=== PATIENT | male | born 1970 | race Caucasian/White ===

== ENCOUNTER → 2019-01-18 07:55 | Outpatient (CLI) | payer OTHER, SELFPAY ==
[2019-01-18 08:56] LABS: Add Manual Diff / Slide Review NO; Basophils Absolute Auto 100 /uL (0-100); Basophils Percent Auto 1.5 % (0-2); Eosinophils Absolute Auto 100 /uL (0-450); Eosinophils Percent Auto 2.1 % (2-4); Hematocrit 42.5 % (41-53); Hemoglobin 14.5 g/dL (13.5-17.5); Lymphocytes Absolute Auto 1600 /uL (1100-4500); Lymphocytes Percent Auto 32.4 % (25-40); Mean Corpuscular HGB Conc 34.1 % (30-36); Mean Corpuscular Hemoglobin 31.6 PG (26-34); Mean Corpuscular Volume 92.7 fL (80-100); Monocytes Absolute Auto 700 /uL (0-900); Monocytes Percent Auto 13.3 % (3-14); Neutrophils Absolute Auto 2600 /uL (1500-7000); Neutrophils Percent Auto 50.7 % (50-75); Platelet Count 166 X10^3/uL (150-400); Red Blood Cell Count 4.59 X10^6/uL (4.5-5.9); Red Cell Distribution Width 13.1 % (11.6-14.8); White Blood Cell Count 5.1 X10^3/uL (4.5-11.0)
[2019-01-18 09:49] LABS: Alanine Aminotransferase 27 IU/L (<50); Albumin 4.9 g/dL (3.5-5.0); Alkaline Phosphatase 43 U/L (38-126); Aspartate Aminotransferase 26 IU/L (17-59); Bilirubin Total 1.3 mg/dL (0.2-1.3); Blood Urea Nitrogen 18 mg/dL (9-20); Carbon Dioxide 27 mmol/L (22-32); Chloride 102 mmol/L (98-107); Cholesterol 216 mg/dL (140-199); Estimated Glomerular Filt Rate > 60.0 mL/min (>60); Globulin 2.4 g/dL (1.7-4.1); Glucose 95 mg/dL (70-100); HDL Cholesterol 57 mg/dL (40-60); HEMOLYSIS < 15 (0-50); LDL Cholesterol Calculated 139 mg/dL (<100); Potassium 4.4 mmol/L (3.4-5.1); Sodium 140 mmol/L (137-145); Total Protein 7.3 g/dL (6.3-8.2); Triglycerides 102 mg/dL (35-150)
[2019-01-18 10:17] LABS: TSH w/ Reflex to FT4 1.31 uIU/mL (0.47-4.68)
== END ==
PROVIDERS: PCP Family Medicine; Visit Provider Family Medicine
DX: Z00.00 Encounter for general adult medical examination without abnormal findings (principal)
CPT/HCPCS: 36415; 80053; 80061; 84443; 85025

== ENCOUNTER → 2020-02-17 07:55 | Outpatient (CLI) | payer OTHER, SELFPAY ==
[2020-02-17 08:40] LABS: Add Manual Diff / Slide Review NO; Basophils Absolute Auto 100 /uL (0-100); Basophils Percent Auto 1.4 % (0-2); Eosinophils Absolute Auto 100 /uL (0-450); Hematocrit 42.6 % (41-53); Hemoglobin 14.4 g/dL (13.5-17.5); Lymphocytes Absolute Auto 1700 /uL (1100-4500); Lymphocytes Percent Auto 32.5 % (25-40); Mean Corpuscular HGB Conc 33.7 % (30-36); Mean Corpuscular Hemoglobin 31.1 PG (26-34); Mean Corpuscular Volume 92.3 fL (80-100); Monocytes Absolute Auto 700 /uL (0-900); Monocytes Percent Auto 13.6 % (3-14); Neutrophils Absolute Auto 2700 /uL (1500-7000); Neutrophils Percent Auto 50.5 % (50-75); Platelet Count 178 X10^3/uL (150-400); Red Blood Cell Count 4.62 X10^6/uL (4.5-5.9); Red Cell Distribution Width 13.2 % (11.6-14.8); White Blood Cell Count 5.3 X10^3/uL (4.5-11.0)
[2020-02-17 09:12] LABS: Cholesterol 202 mg/dL (140-199); HDL Cholesterol 59 mg/dL (40-60); LDL Cholesterol Calculated 126 mg/dL (<100); Triglycerides 86 mg/dL (35-150)
[2020-02-17 09:44] LABS: Prostate Specific Antigen Scrn 5.24 ng/mL (0.1-4.0); TSH w/ Reflex to FT4 1.27 uIU/mL (0.47-4.68)
== END ==
PROVIDERS: PCP Family Medicine; Referring Provider Family Medicine; Visit Provider Family Medicine
DX: R35.1 Nocturia (principal); Z13.220 Encounter for screening for lipoid disorders
CPT/HCPCS: 36415; 80061; 84443; 85025; G0103

== ENCOUNTER → 2020-03-09 10:20 | Outpatient (CLI) | payer OTHER, SELFPAY ==
[2020-03-09 11:53] LABS: COVID19 -Nasal RAPID Negative (Negative)
== END ==
PROVIDERS: PCP Family Medicine; Visit Provider Specialist
DX: Z20.822 Contact with and (suspected) exposure to COVID-19 (principal)
CPT/HCPCS: 87635; C9803

== ENCOUNTER 2020-03-10 07:33 | Day surgery (SDC) | payer OTHER, SELFPAY ==
[2020-03-10] VITALS (7 sets, daily range): BP systolic 103–137; BP diastolic 64–86; PULSE 52–64; RESP 12–16; TEMP 36.2–37; O2SAT 92–98; BMI 28.7
--- NOTE | 2020-03-10 | PATH_ITS ---
[facility] Accession Number: [id number] . 01 Material submitted: . PART A: esophagus, E-G Junction - GE JUNCTION PART B: gastrointestinal site - GASTRIC ULCER PART C: colon - COLON POLYP AT 30CM PART D: anus - ANAL LESION . 02 Diagnosis: A. Gastroesophageal Junction, Biopsies: Squamocolumnar junctional mucosa with mild chronic inflammation. Negative for specialized intestinal metaplasia on alcian blue stain. Negative for dysplasia or malignancy. . B. Gastric Ulcer, Biopsy: Gastric body mucosa with focal erosion. Negative for Helicobacter organisms by immunohistochemistry. Negative for intestinal metaplasia. Negative for dysplasia or malignancy. . C. Colon Polyp at 30 cm, Biopsy: Tubular adenoma. . D. Anal Lesion, Biopsy: Most consistent with hypertrophic anal papilla. No evidence of neoplasm. [facility] 03/13/2020 1552 Local . 02 Electronically signed: . Ramana Serra MD, PhD, Pathologist NPI- [id number] . 01 Gross description: . A. The specimen is received in formalin, labeled GE junction and consists multiple frausto-pink fragments of soft tissue measuring 1.0 x 0.7 x 0.2 cm in aggregate. The specimen is entirely submitted in cassette A1. B. The specimen is received in formalin, labeled gastric ulcer and consists of three frausto-pink fragments of soft tissue measuring 0.6 x 0.5 x 0.2 cm in aggregate. The specimen is entirely submitted in cassette B1. C. The specimen is received in formalin, labeled colon polyp at 30 cm and consists of two frausto-pink polyps measuring 0.6 x 0.5 x 0.4 cm each. The margins are inked blue and the specimen is entirely submitted in cassette C1. D. The specimen is received in formalin, labeled anal lesion and consists of a 1.8 x 0.6 x 0.6 cm frausto-pink fragment of soft tissue which is bisected and entirely submitted in cassette D1. (EA:[id number]) /MRV 03/11/2020 1234 Local . 02 Microscopic: . A. An AB/PAS stain is performed to evaluate for specialized intestinal metaplasia, and is negative for goblet cells. The control stains show appropriate reactivity. . B. An immunohistochemical stain was performed to evaluate for Helicobacter organisms and is negative. The control stain showed appropriate reactivity. . * This test was developed and its performance characteristics determined by [facility]. It has not been cleared or approved by the U.[place]. Food and Drug Administration. The FDA has determined that such clearance or approval is not necessary. This test is used for clinical purposes. It should not be regarded as investigational or for research. . 02 Pathologist provided ICD-10: K29.70, D12.5, K62.0 . 02 CPT . 890285, 876633, 679830, 075106, [id number], 658324 Performed at: 01 [facility] [address] [address] [id number] MD Micheal Lunsford MD Phone: [phone] Performed at: 02 [facility] [address] [place] [id number] MD Kamille Nielsen MD Phone: [phone]
--- NOTE | 2020-03-10 08:08 | PM.PREOP ---
Pre-operative Note COVID-19 COVID-19 status: Negative Result date/Date tested (Pos, Neg/Pending): 03/09/20 Interval Note History & Physical reviewed/Exam performed by Physician: Yes Changes to H&P: No ASA Class (for procedural sedation): I
[2020-03-10] MEDS: LACTATED RINGERS 1,000 ML 200 ML IV (08:13)
[2020-03-10] MEDS: LIDOCAINE 4% SOLN 50 ML 20 ML TOP (08:18)
[2020-03-10] MEDS: MIDAZOLAM 5 MG/5 ML VIAL IV (08:27)
[2020-03-10] MEDS: fentaNYL 250 MCG/5 ML INJ IV (08:27)
--- NOTE | 2020-03-10 09:23 | PM.OP.ENDO ---
Operative Date/Time/Diagnoses Date of procedure: 03/10/20 Time of procedure: 09:24 Pre-op diagnosis: Screening for colon cancer. Chronic reflux disease. History of prolapsing hemorrhoid per patient. Post-op diagnosis: other (Gastric ulcers in the proximal stomach. Possible Adhikari's esophagus. Polyp at 30 cm from the anal verge. Verrucous pedunculated Lesion at the anal verge) Procedure & Clinicians Study performed: EGD with cold biopsy. Colonoscopy with hot snare polypectomy. Anoscopy with hot snare and excision of anal lesion. Same procedure as scheduled: Yes Indications: Evaluate upper tract. Screening colonoscopy. Possible hemorrhoidal disease. Surgeon: Dc Medrano Procedure Notes SCOAP/Timeout: Performed Procedure in detail: The patient had topical anesthetic applied to oropharynx. She was placed in left lateral decubitus position and underwent IV sedation directed by the surgeon consisting of fentanyl and Versed. A bite block was inserted and the scope was advanced through it into the esophagus. The esophagus was unremarkable. GE junction was noted at 42 cm from the incisors. There was some evidence of possible Adhikari's esophagus at the GE junction.. The stomach insufflated well. There were no lesions seen in the body, antrum or at the incisura. The pyloric channel was patent. The duodenum was unremarkable to the 4th part. The scope was brought back into the stomach and retroflexed. The proximal stomach was remarkable for 3 ulcers near 1 another in the proximal stomach. Biopsies were taken.. The scope was straightened and brought out through the esophagus again. Biopsies were taken at the GE junction. No other lesions were seen. The scope was removed and the patient tolerated the procedure well. The patient was repositioned and he was given additional sedation. Digital exam was remarkable for a palpable irregularity. Prostate is mildly enlarged. There are no palpable masses.. The scope was inserted and advanced through the rectum into the sigmoid, descending, transverse, and ascending colon. I did examine the anus very carefully coming through it and it appeared that there was a lesion in this area. As I advanced through the sigmoid there was a polyp on a stalk which I decided to remove later. No other lesions were seen. There was no diverticulosis noted.. The cecum was reached identified by the ileocecal valve and the appendiceal opening. The ileocecal valve was successfully cannulated. The terminal ileum was normal in appearance. The scope was gradually brought out. One polyp, the lesion at the sigmoid was identified and removed with a hot snare. It appeared to be completely destroyed. The base was cauterized to ensure destruction. The scope was brought out into the rectum.. The scope ultimately was retroflexed in the rectum. The appearance was remarkable for the lesion eyes felt and saw going in. It was right near the anal verge. I did not feel I could snared and a retroflexed view as I could not see the base. Scope was slowly brought through and I placed the snare on the lesion. Unfortunately I could not get it to the base of the colonoscope and snare were removed and an anoscope inserted. I could see the lesion well and grasp it with a clamp inserted through the snare opening. The snare was then placed above my clamp on the base of this lesion and using a hot snare the base was cauterized and then transected with the scissor. The lesion appeared to be completely removed and there was no bleeding. No other lesion was seen in the area.. The scope was removed and the patient tolerated the procedure well. The prep was good. Scope withdrawal time: 9 minutes(14 total) Sedation minutes: 53 Findings: Adhikari's esophagus (Possible. Biopsies pending.), gastric ulcer, polyp (30 cm) and other findings (Lesion near the anal verge. Mildly enlarged prostate.) Specimen(s): other (Polyp and lesion near the anal verge) Complications: none Post-procedure Recommendations: Colonscopy in 5 years, Start medication(s) (Omeprazole 20 mg twice a day) and Other recommendation (Depend upon pathology report) Follow up: months (1) Disposition: PACU
== END 2020-03-10 10:32 | disposition home or self-care (01) ==
PROVIDERS: PCP Family Medicine; Referring Provider Specialist; Visit Provider Specialist
PROC: 0DJ08ZZ Inspection of Upper Intestinal Tract, Via Natural or Artificial Opening Endoscopic (ICD-10-PCS; CPT 43235; principal; 2020-03-10 08:30)
PROC: 0DJD8ZZ Inspection of Lower Intestinal Tract, Via Natural or Artificial Opening Endoscopic (ICD-10-PCS; CPT 45378; 2020-03-10 08:30)
DX: Z12.11 Encounter for screening for malignant neoplasm of colon (principal); K21.9 Gastro-esophageal reflux disease without esophagitis; K25.9 Gastric ulcer, unspecified as acute or chronic, without hemorrhage or perforation; K29.50 Unspecified chronic gastritis without bleeding; D12.6 Benign neoplasm of colon, unspecified; K62.0 Anal polyp
CPT/HCPCS: 45385; 43239; 99152; 99153; J2250; J3010

== ENCOUNTER → 2020-07-22 10:48 | Outpatient (CLI) | payer OTHER, SELFPAY ==
[2020-07-22 12:48] LABS: Prostate Specific Antigen 6.07 ng/mL (0.10-4.00)
== END ==
PROVIDERS: PCP Family Medicine; Referring Provider Family Medicine; Visit Provider Family Medicine
DX: R89.9 Unspecified abnormal finding in specimens from other organs, systems and tissues (principal); R97.20 Elevated prostate specific antigen [PSA]
CPT/HCPCS: 36415; 84153

== ENCOUNTER → 2020-10-16 09:17 | Outpatient (CLI) | payer OTHER, SELFPAY ==
[2020-10-17 08:43] LABS: PSA Free % 11.5 % (.); PSA, Total 8.6 ng/mL (0.0-4.0)
[2020-10-26 09:52] LABS: SARS-CoV-2 Antibody Titer <0.4
== END ==
PROVIDERS: PCP Family Medicine; Referring Provider Family Medicine; Visit Provider Family Medicine
DX: R39.89 Other symptoms and signs involving the genitourinary system (principal); R97.20 Elevated prostate specific antigen [PSA]; Z01.84 Encounter for antibody response examination
CPT/HCPCS: 36415; 84153; 84154; 86769

== ENCOUNTER → 2020-12-16 08:07 | Outpatient (CLI) | payer OTHER, SELFPAY ==
[2020-12-17 09:36] LABS: PSA Free % 11.8 % (.); PSA, Total 7.3 ng/mL (0.0-4.0)
== END ==
PROVIDERS: PCP Family Medicine; Referring Provider Urology; Visit Provider Urology
DX: R39.89 Other symptoms and signs involving the genitourinary system (principal); R97.20 Elevated prostate specific antigen [PSA]
CPT/HCPCS: 36415; 84153; 84154

== ENCOUNTER → 2021-03-19 09:48 | Outpatient (CLI) | payer OTHER, SELFPAY ==
--- NOTE | 2021-03-19 09:49 | DI.RAD.S_ITS ---
PROCEDURE: XR CHEST 2V INDICATIONS: cough TECHNIQUE: 2 views of the chest were acquired. COMPARISON: [facility], CHEST 2 VIEW, 10/10/2009, 9:49. [facility], CHEST 2 VIEW, 02/16/2012, 13:36. FINDINGS: Surgical changes and devices: None. Lungs and pleura: Lungs are clear. No pleural effusions or pneumothorax. Mediastinum: Mediastinal contours are normal. Heart size is normal. Bones and chest wall: No suspicious bony abnormalities. Soft tissues appear unremarkable. IMPRESSION: No source for cough identified radiographically. Dictated by: Delon Alexandra [facility] Interpreted: Ishmael Gillespie MD on 03/19/2021 at 10:04 Transcribed by: AUTUMN on 03/19/2021 at 10:06 Approved by: Ishmael Gillespie M.D. on 03/19/2021 at 10:35
[2021-03-19 10:53] LABS: Alanine Aminotransferase 31 IU/L (<50); Albumin Globulin Ratio 1.7 (1.0-2.8); Alkaline Phosphatase 51 U/L (38-126); Aspartate Aminotransferase 36 IU/L (17-59); BUN Creatinine Ratio 14.7 (6-22); Bilirubin Total 1.3 mg/dL (0.2-1.3); Blood Urea Nitrogen 14 mg/dL (9-20); Calcium 9.8 mg/dL (8.4-10.2); Carbon Dioxide 29 mmol/L (22-32); Chloride 102 mmol/L (98-107); Cholesterol 240 mg/dL (140-199); Estimated Glomerular Filt Rate > 60.0 mL/min (>60); Glucose 97 mg/dL (70-100); HDL Cholesterol 77 mg/dL (40-60); HEMOLYSIS < 15 (0-50); LDL Cholesterol Calculated 150 mg/dL (<100); Potassium 4.4 mmol/L (3.4-5.1); Sodium 140 mmol/L (137-145); Triglycerides 63 mg/dL (35-150)
[2021-03-19 11:22] LABS: TSH w/ Reflex to FT4 1.25 uIU/mL (0.47-4.68)
[2021-03-20 08:52] LABS: PSA Free % 13.7 % (.); PSA, Total 8.4 ng/mL (0.0-4.0)
== END ==
PROVIDERS: PCP Family Medicine; Referring Provider Family Medicine; Visit Provider Family Medicine
DX: R05.3 Chronic cough (principal); E78.2 Mixed hyperlipidemia; K21.9 Gastro-esophageal reflux disease without esophagitis; N41.1 Chronic prostatitis; R97.20 Elevated prostate specific antigen [PSA]
CPT/HCPCS: 36415; 71046; 80053; 80061; 84153; 84154; 84443

== ENCOUNTER → 2021-06-11 09:09 | Outpatient (CLI) | payer OTHER, SELFPAY ==
[2021-06-11 10:59] LABS: Cholesterol 204 mg/dL (140-199); HDL Cholesterol 66 mg/dL (40-60); LDL Cholesterol Calculated 128 mg/dL (<100); Triglycerides 51 mg/dL (35-150)
[2021-06-12 06:11] LABS: PSA, Total 6.1 ng/mL (0.0-4.0)
== END ==
PROVIDERS: PCP Family Medicine; Referring Provider Urology; Visit Provider Urology
DX: E78.2 Mixed hyperlipidemia (principal); R97.20 Elevated prostate specific antigen [PSA]
CPT/HCPCS: 36415; 80061; 84153; 84154

== ENCOUNTER → 2021-09-06 13:41 | Outpatient (CLI) | payer OTHER, SELFPAY ==
[2021-09-07 06:25] LABS: PSA, Total 4.8 ng/mL (0.0-4.0)
== END ==
PROVIDERS: PCP Family Medicine; Referring Provider Urology; Visit Provider Urology
DX: R97.20 Elevated prostate specific antigen [PSA] (principal)
CPT/HCPCS: 36415; 84153; 84154

== ENCOUNTER → 2021-12-17 14:03 | Outpatient (CLI) | payer OTHER, SELFPAY ==
[2021-12-19 07:37] LABS: PSA Free % 12.9 % (.); PSA, Total 10.1 ng/mL (0.0-4.0)
== END ==
PROVIDERS: PCP Family Medicine; Referring Provider Urology; Visit Provider Urology
DX: R97.20 Elevated prostate specific antigen [PSA] (principal)
CPT/HCPCS: 36415; 84153; 84154

== ENCOUNTER → 2022-01-20 11:24 | Outpatient (CLI) | payer OTHER, SELFPAY ==
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
== END ==
PROVIDERS: PCP Family Medicine; Referring Provider Nurse Practitioner Family; Visit Provider Nurse Practitioner Family
DX: M51.34 Other intervertebral disc degeneration, thoracic region (principal); M51.36 Other intervertebral disc degeneration, lumbar region; M54.9 Dorsalgia, unspecified
CPT/HCPCS: 72072; 72100

== ENCOUNTER → 2022-02-21 09:09 | Outpatient (CLI) | payer OTHER, SELFPAY ==
[2022-02-24 14:37] LABS: PSA Free % 11.6 % (.); PSA, Total 8.8 ng/mL (0.0-4.0)
== END ==
PROVIDERS: PCP Family Medicine; Referring Provider Urology; Visit Provider Urology
DX: R39.89 Other symptoms and signs involving the genitourinary system (principal); R97.20 Elevated prostate specific antigen [PSA]
CPT/HCPCS: 36415; 84153; 84154

== ENCOUNTER → 2022-07-14 08:05 | Outpatient (CLI) | payer OTHER, SELFPAY ==
[2022-07-16 07:08] LABS: PSA Free % 11.6 % (.); PSA, Total 6.9 ng/mL (0.0-4.0)
== END ==
PROVIDERS: PCP Family Medicine; Referring Provider Urology; Visit Provider Urology
DX: R97.20 Elevated prostate specific antigen [PSA] (principal)
CPT/HCPCS: 36415; 84153; 84154

== ENCOUNTER → 2022-12-16 09:15 | Outpatient (CLI) | payer OTHER, SELFPAY ==
[2022-12-18 11:50] LABS: PSA Free % 10.2 % (.); PSA, Total 8.1 ng/mL (0.0-4.0)
== END ==
PROVIDERS: PCP Family Medicine; Referring Provider Urology; Visit Provider Urology
DX: R97.20 Elevated prostate specific antigen [PSA] (principal)
CPT/HCPCS: 36415; 84153; 84154

== ENCOUNTER → 2023-01-02 15:13 | Outpatient (CLI) | payer OTHER, SELFPAY ==
--- NOTE | 2023-01-02 15:14 | DI.MRI.S_ITS ---
PROCEDURE: MR PELVIC PROSTATE PROTOCOL INDICATIONS: Elevated and rising PSA TECHNIQUE: Coronal HASTE, axial T1 FSE with fat saturation, 3-plane nonbreath-hold T2 FSE. After the administration of contrast, dynamic axial, delayed axial and coronal VIBE or 2-D FLASH with fat saturation through the pelvis. Diffusion weighted imaging and ADC was performed. COMPARISON: [facility], CT, ABDOMEN/PELVIS WITH CONTRAST, 03/09/2012, 10:59. FINDINGS: Image quality: Diffusion weighted and dynamic contrast enhanced images are diagnostic. Prostate: Gland size is 5.5 x 5.1 x 3.8 cm; ellipsoid gland volume is 55 mL. No significant foci of intrinsic T1 hyperintensity to suggest hemorrhage. Multiple BPH nodules. Median lobe hypertrophy. No significant areas of ADC hypointensity in the peripheral zone. No suspicious foci of the T2 hypointense signal in the transitional zone. No PI-RADS 4 or 5 observations. Genitourinary system: Bladder wall thickness is normal. Distal ureters are non distended. Bowel and peritoneum: No pathologic free pelvic fluid. Inferior colon and small bowel loops are normal in caliber. Nodes and vessels: No pelvic or inguinal adenopathy by size criteria. Iliac vessels are normal in caliber. Soft tissues: No inguinal hernias. Bones: Marrow demonstrates normal overall signal, without lesions to suggest metastases. IMPRESSION: 1. Prostatomegaly with multiple BPH nodules. 2. No PI-RADS 4 or 5 observations. 3. No enlarged lymph nodes. Dictated by: Ishmael Gillespie M.D. on 01/02/2023 at 20:52 Approved by: Ishmael Gillespie M.D. on 01/02/2023 at 21:00
== END ==
PROVIDERS: PCP Family Medicine; Referring Provider Urology; Visit Provider Urology
DX: N40.2 Nodular prostate without lower urinary tract symptoms (principal); R97.20 Elevated prostate specific antigen [PSA]
CPT/HCPCS: 72197; A9579

== ENCOUNTER → 2023-03-29 11:54 | Outpatient (CLI) | payer OTHER, SELFPAY ==
[2023-04-02 05:51] LABS: PSA Free % 13.9 % (.); PSA, Total 6.9 ng/mL (0.0-4.0)
== END ==
PROVIDERS: PCP Family Medicine; Referring Provider Urology; Visit Provider Urology
DX: R97.20 Elevated prostate specific antigen [PSA] (principal)
CPT/HCPCS: 36415; 84153; 84154

== ENCOUNTER → 2023-04-11 14:53 | Outpatient (CLI) | payer OTHER, SELFPAY | PROVIDERS: PCP Family Medicine; Visit Provider Urology | DX: N41.1 Chronic prostatitis (principal); R33.9 Retention of urine, unspecified; R39.89 Other symptoms and signs involving the genitourinary system; R97.20 Elevated prostate specific antigen [PSA]; Z87.898 Personal history of other specified conditions | CPT/HCPCS: 81002; 87086 ==

== ENCOUNTER → 2023-07-20 16:22 | Outpatient (CLI) | payer OTHER, SELFPAY ==
[2023-07-25 07:21] LABS: PSA Free % 17.1 % (.)
== END ==
PROVIDERS: PCP Family Medicine; Referring Provider Urology; Visit Provider Urology
DX: R97.20 Elevated prostate specific antigen [PSA] (principal)
CPT/HCPCS: 36415; 84153; 84154

== ENCOUNTER → 2023-10-28 10:10 | Outpatient (CLI) | payer OTHER, SELFPAY ==
[2023-10-30 11:36] LABS: PSA Free % 11.5 % (.); PSA, Total 7.2 ng/mL (0.0-4.0)
== END ==
PROVIDERS: PCP Family Medicine; Referring Provider Urology; Visit Provider Urology
DX: R97.20 Elevated prostate specific antigen [PSA] (principal)
CPT/HCPCS: 36415; 84153; 84154

== ENCOUNTER → 2023-11-09 16:13 | Outpatient (CLI) | payer OTHER, SELFPAY | PROVIDERS: PCP Family Medicine; Visit Provider Urology | DX: N41.1 Chronic prostatitis (principal); R97.20 Elevated prostate specific antigen [PSA]; R33.9 Retention of urine, unspecified; R39.14 Feeling of incomplete bladder emptying; R39.9 Unspecified symptoms and signs involving the genitourinary system | CPT/HCPCS: 51798; 81002; 87086; 99213 ==

== ENCOUNTER → 2024-02-12 10:41 | Outpatient (CLI) | payer OTHER, SELFPAY ==
[2024-02-13 07:08] LABS: PSA, Total 7.3 ng/mL (0.0-4.0)
== END ==
PROVIDERS: PCP Family Medicine; Referring Provider Urology; Visit Provider Urology
DX: R97.20 Elevated prostate specific antigen [PSA] (principal)
CPT/HCPCS: 36415; 84153; 84154

== ENCOUNTER → 2024-02-23 09:23 | Outpatient (CLI) | payer OTHER, SELFPAY | PROVIDERS: PCP Family Medicine; Visit Provider Urology | DX: R33.9 Retention of urine, unspecified (principal); R39.9 Unspecified symptoms and signs involving the genitourinary system | CPT/HCPCS: 87086 ==

== ENCOUNTER → 2024-03-07 14:46 | Outpatient (CLI) | payer OTHER, SELFPAY ==
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
== END ==
PROVIDERS: PCP Family Medicine; Referring Provider Urology; Visit Provider Urology
DX: K76.89 Other specified diseases of liver (principal); R31.0 Gross hematuria; N40.0 Benign prostatic hyperplasia without lower urinary tract symptoms
CPT/HCPCS: 74178; Q9967

== ENCOUNTER → 2024-06-25 13:36 | Outpatient (CLI) | payer OTHER, SELFPAY ==
[2024-06-25 14:49] LABS: Add Manual Diff / Slide Review NO; Basophils Absolute Auto 100 /uL (0-100); Basophils Percent Auto 1.1 % (0-2); Eosinophils Absolute Auto 0 /uL (0-450); Eosinophils Percent Auto 0.9 % (2-4); Hematocrit 40.4 % (41-53); Hemoglobin 13.9 g/dL (13.5-17.5); Lymphocytes Absolute Auto 1500 /uL (1100-4500); Lymphocytes Percent Auto 26.8 % (25-40); Mean Corpuscular HGB Conc 34.4 % (30-36); Monocytes Absolute Auto 600 /uL (0-900); Neutrophils Absolute Auto 3300 /uL (1500-7000); Neutrophils Percent Auto 60.2 % (50-75); Platelet Count 158 X10^3/uL (150-400); Red Blood Cell Count 4.34 X10^6/uL (4.5-5.9); Red Cell Distribution Width 12.9 % (11.6-14.8); White Blood Cell Count 5.5 X10^3/uL (4.5-11.0)
[2024-06-25 15:02] LABS: Alanine Aminotransferase 21 IU/L (<50); Albumin 4.9 g/dL (3.5-5.0); Albumin Globulin Ratio 2.3 (1.0-2.8); Alkaline Phosphatase 51 U/L (38-126); Aspartate Aminotransferase 27 IU/L (17-59); BUN Creatinine Ratio 17.3 (6-22); Bilirubin Total 1.5 mg/dL (0.2-1.3); Blood Urea Nitrogen 17 mg/dL (9-20); Calcium 9.5 mg/dL (8.4-10.2); Carbon Dioxide 22 mmol/L (22-32); Chloride 104 mmol/L (98-107); Cholesterol 212 mg/dL (140-199); Estimated Glomerular Filt Rate > 60 mL/min (>60); Globulin 2.1 g/dL (1.7-4.1); Glucose 90 mg/dL (70-99); HDL Cholesterol 79 mg/dL (40-60); HEMOLYSIS < 15 (0-50); LDL Cholesterol Calculated 124 mg/dL (<100); Potassium 4.2 mmol/L (3.4-5.1); Sodium 137 mmol/L (137-145); Triglycerides 47 mg/dL (35-150)
[2024-06-25 15:37] LABS: Prostate Specific Antigen 6.27 ng/mL (0.10-4.00)
[2024-06-26 06:39] LABS: PSA Free % 20.9 % (.); PSA, Total 4.3 ng/mL (0.0-4.0)
== END ==
PROVIDERS: PCP Family Medicine; Referring Provider Urology; Visit Provider Urology
DX: Z00.00 Encounter for general adult medical examination without abnormal findings (principal); R97.20 Elevated prostate specific antigen [PSA]; N40.1 Benign prostatic hyperplasia with lower urinary tract symptoms; N13.8 Other obstructive and reflux uropathy
CPT/HCPCS: 36415; 80053; 80061; 84153; 84154; 85025

== ENCOUNTER → 2024-09-25 09:08 | Outpatient (CLI) | payer OTHER, SELFPAY ==
[2024-09-27 07:40] LABS: PSA, Total 7.5 ng/mL (0.0-4.0)
== END ==
PROVIDERS: PCP Family Medicine; Referring Provider Urology; Visit Provider Urology
DX: R97.20 Elevated prostate specific antigen [PSA] (principal)
CPT/HCPCS: 36415; 84153; 84154